=== PATIENT | female | born 1985 | race American Indian/Alaskan Native ===

== ENCOUNTER 2019-01-10 02:33 | Emergency (ER) | payer OTHER ==
[2019-01-10 06:02] VITALS: BP 134/80
[2019-01-10 07:18] LABS: Hematocrit 27.9 % (30.3-42.9); Hemoglobin 8.7 gm/dl (10.1-14.3)
[2019-01-10 07:19] LABS: Mean Corpuscular HGB Conc 31 % (30-34); Mean Corpuscular Volume 80 fl (79-97); Platelet Count 250 K/mm3 (140-440)
--- NOTE | 2019-01-10 07:22 | Emergency Department Report ---
ED General Adult HPI - General Chief complaint: Extremity Problem,Nontraumatic Stated complaint: SWOLLEN LEFT LEG Time Seen by Provider: 01/10/19 06:22 Source: patient Mode of arrival: Ambulatory Limitations: No Limitations - History of Present Illness Initial comments: Patient presents to the ED for left leg pain x 4 days. Patient denies injury to her leg. Patient is currently on OCP. Patient denies any chest pain, shortness breath, or headache. Patient also denies any recent travel. -: Sudden Location: lower extremity Radiation: non-radiation Severity scale (0 -10): 10 Quality: sharp Consistency: constant Improves with: none Worsens with: none Associated Symptoms: denies other symptoms Treatments Prior to Arrival: none - Related Data Previous Rx's Medication Instructions Recorded Last Taken Type Ibuprofen [Motrin] 800 mg PO Q8HR PRN #30 tablet 01/10/19 Unknown Rx predniSONE [Deltasone] 20 mg PO DAILY #15 tablet 01/10/19 Unknown Rx Allergies Allergy/AdvReac Type Severity Reaction Status Date / Time No Known Allergies Allergy Unverified 01/10/19 02:43 ED Review of Systems ROS: Stated complaint: SWOLLEN LEFT LEG Other details as noted in HPI Comment: All other systems reviewed and negative Constitutional: denies: chills, fever Eyes: denies: eye pain, eye discharge, vision change ENT: denies: ear pain, throat pain Respiratory: denies: cough, shortness of breath, wheezing Cardiovascular: denies: chest pain, palpitations Endocrine: no symptoms reported Gastrointestinal: denies: abdominal pain, nausea, diarrhea Genitourinary: denies: urgency, dysuria, discharge Musculoskeletal: other (leg pain). denies: back pain, joint swelling, arthralgia Skin: denies: rash, lesions Neurological: denies: headache, weakness, paresthesias Psychiatric: denies: anxiety, depression Hematological/Lymphatic: denies: easy bleeding, easy bruising ED Past Medical Hx - Past Medical History Previous Medical History?: Yes Additional medical history: anemia - Surgical History Past Surgical History?: Yes Additional Surgical History: x1 - Social History Smoking Status: Never Smoker Substance Use Type: Alcohol - Medications Home Medications: Home Medications Medication Instructions Recorded Confirmed Last Taken Type Ibuprofen [Motrin] 800 mg PO Q8HR PRN #30 tablet 01/10/19 Unknown Rx predniSONE [Deltasone] 20 mg PO DAILY #15 tablet 01/10/19 Unknown Rx ED Physical Exam - General Limitations: No Limitations General appearance: alert, in no apparent distress - Head Head exam: Present: atraumatic, normocephalic - Eye Eye exam: Present: normal appearance, PERRL, EOMI - ENT ENT exam: Present: mucous membranes moist - Neck Neck exam: Present: normal inspection - Respiratory Respiratory exam: Present: normal lung sounds bilaterally. Absent: respiratory distress, wheezes, rales - Cardiovascular Cardiovascular Exam: Present: regular rate, normal rhythm. Absent: systolic murmur, diastolic murmur, rubs, gallop - GI/Abdominal GI/Abdominal exam: Present: soft, normal bowel sounds. Absent: distended, tenderness - Extremities Exam Extremities exam: Present: calf tenderness - Back Exam Back exam: Present: normal inspection - Neurological Exam Neurological exam: Present: alert, oriented X3, CN II-XII intact. Absent: motor sensory deficit - Psychiatric Psychiatric exam: Present: normal affect, normal mood - Skin Skin exam: Present: warm, dry, intact, normal color. Absent: rash ED Course Vital Signs 01/10/19 01/10/19 05:59 07:51 Temperature 97.3 F L 98.5 F Pulse Rate 87 Respiratory 18 Rate Blood Pressure 134/80 Blood Pressure 134/80 [Left] O2 Sat by Pulse 98 Oximetry ED Medical Decision Making - Lab Data Result diagrams: 01/10/19 07:04 01/10/19 07:10 - Radiology Data Radiology results: report reviewed - Medical Decision Making Discussed findings with patient and the need to use a warm compress Critical care attestation.: If time is entered above; I have spent that time in minutes in the direct care of this critically ill patient, excluding procedure time. ED Disposition Clinical Impression: Phlebitis and thrombophlebitis Disposition: DC-01 TO HOME OR SELFCARE Is pt being admited?: No Does the pt Need Aspirin: No Condition: Stable Instructions: Superficial Thrombophlebitis (ED) Additional Instructions: return if worse Referrals: BOLIVAR CUELLAR MD [Primary Care Provider] - 3-5 Days [facility] [Provider Group] - 3-5 Days [facility] [Provider Group] - 3-5 Days LUIS EDUARDO MD [Staff Physician] - 3-5 Days Forms: Work/School Release Form(ED) Time of Disposition: 10:40
[2019-01-10 07:24] LABS: Red Cell Distribution Width 26.8 % (13.2-15.2)
[2019-01-10 07:28] LABS: INR 1.07 (0.87-1.13)
[2019-01-10 07:29] LABS: BUN/Creatinine Ratio 14; Blood Urea Nitrogen 7 mg/dL (7-17); Hemolysis Index 16; Partial Thromboplastin Time 21.4 Sec. (24.2-36.6)
[2019-01-10 08:30] LABS: Basophils % (Manual) 0 % (0.0-1.8); Monocytes % (Manual) 0 % (0.0-7.3); Total Cells Counted 100
[2019-01-10 08:32] LABS: Anisocytosis 1+; Macrocytosis Few; Ovalocytes 1+; Platelet Estimate Consistent w Auto; Poikilocytosis 2+; Tear Drop Cells Few
--- NOTE | 2019-01-10 10:34 | Vascular Lab Report ---
FINAL REPORT EXAM: VL VENOUS DUPLEX LE LT HISTORY: pain TECHNIQUE: Dudley scale, color and pulsed Doppler ultrasound with color flow and spectral analysis toby luation of the left lower extremity was performed to assess for deep vein thrombosis. PRIORS: None currently available. FINDINGS: Left Extremity: Noncompressibility in the superficial saphenous vein extending from a popliteal fossa to the ankle. Otherwise, there s normal grayscale appearance and compressibility. Normal phasic pulsed Doppler and normal color Doppler flow are visualized. The interrogated vessels s how normal augmentation. IMPRESSION: No evidence for DVT. Thrombus in the lower superficial fat facets vein. Mich level II reporting initiated.
== END 2019-01-10 11:07 | disposition home or self-care (01) ==
LOC: ED 02:33
DX: I80.9 Phlebitis and thrombophlebitis of unspecified site (principal)
CPT/HCPCS: 36415; 80048; 85007; 85025; 85610; 85730

== ENCOUNTER 2022-05-15 15:50 | Emergency (ER) | payer OTHER ==
[2022-05-15 17:25] LABS: BUN/Creatinine Ratio 5; Blood Urea Nitrogen 4 mg/dL (7-17); Calcium 9.2 mg/dL (8.4-10.2); Hemolysis Index 5
[2022-05-15 17:27] LABS: Basophils % (Auto) 0.2 % (0.0-1.8); Eosinophils % (Auto) 0.1 % (0.0-4.3); Hematocrit 39.8 % (30.3-42.9); Lymphocytes # (Auto) 1.6 K/mm3 (1.2-5.4); Lymphocytes % (Auto) 9.9 % (13.4-35.0); Mean Corpuscular HGB Conc 33 % (30-34); Mean Corpuscular Volume 95 fl (79-97); Monocytes # (Auto) 0.6 K/mm3 (0.0-0.8); Monocytes % (Auto) 3.7 % (0.0-7.3); Platelet Count 251 K/mm3 (140-440); Red Blood Count 4.18 M/mm3 (3.65-5.03)
[2022-05-15 17:34] LABS: Red Cell Distribution Width 21.2 % (13.2-15.2)
[2022-05-16 01:03] LABS: Bilirubin,Urine NEG (Negative); Blood,Urine LG (Negative); Color,Urine Amber (Yellow)
[2022-05-16 01:25] LABS: Mucus,Urine 3+ /HPF
[2022-05-16] MEDS ORDERED: SODIUM CHLORIDE 0.9% 1000 ML 1,000 ML IV ONE (01:43)
[2022-05-16] MEDS ORDERED: MORPHINE 4 MG/1 ML INJ IV STA (01:43)
--- NOTE | 2022-05-16 02:40 | Cat Scan Report ---
. CT ABDOMEN AND PELVIS WITH CONTRAST INDICATION / CLINICAL INFORMATION: Lower ABD Pain. TECHNIQUE: Axial CT images were obtained through the abdomen and pelvis after 100 cc of Omnipaque [address] scans at this location are performed using CT dose reduction for ALARA by means of automated exposure control. COMPARISON: None available. FINDINGS: LOWER CHEST: No significant abnormality. AORTA / ARTERIES: No significant abnormality. IVC / VEINS: No significant abnormality. LYMPH NODES: No significant adenopathy. COLON: Fluid-filled loops of large bowel. APPENDIX: No significant abnormality. STOMACH / SMALL BOWEL: Fluid-filled loops of small bowel. PERITONEUM: No free fluid. No free air. No fluid collection. LIVER: No significant abnormality. GALLBLADDER: No significant abnormality. BILE DUCTS: No significant abnormality. PANCREAS: No significant abnormality. SPLEEN: No significant abnormality. ADRENALS: No significant abnormality. RIGHT KIDNEY / URETER: Right renal cyst. No acute findings. LEFT KIDNEY / URETER: No significant abnormality. URINARY BLADDER: Fibroid uterus. REPRODUCTIVE ORGANS: No significant abnormality. SKELETAL SYSTEM: No significant abnormality. ADDITIONAL FINDINGS: None. IMPRESSION: 1. Fluid-filled loops of large and small bowel which can be seen with enteritis/colitis. Signer Name: Rajat Warner DO Signed: 05/16/2022 2:36 AM Workstation Name: [id number]
[2022-05-16] MEDS ORDERED: HYOSCYAMINE SUBL 0.125 MG TAB SL ONE (03:12)
[2022-05-16] MEDS ORDERED: levoFLOXacin 750 MG TAB PO STA (03:13)
[2022-05-16] MEDS ORDERED: KETOROLAC 30 MG/1 ML INJ IV STA (05:33)
[2022-05-16 05:53] VITALS: BP 137/71
--- NOTE | 2022-05-16 05:58 | Emergency Department Report ---
ED Abdominal Pain HPI - General Chief Complaint: Abdominal Pain Stated Complaint: ABD PAIN Time Seen by Provider: 05/16/22 01:34 Source: patient Mode of arrival: Ambulatory Limitations: No Limitations - History of Present Illness MD Complaint: abdominal pain -: Gradual, days(s) (3) Location: diffuse Radiation: none Severity: moderate Severity scale (0 -10): 8 Quality: cramping, aching Consistency: constant Improves With: nothing Worsens With: vomiting Associated Symptoms: nausea, vomiting. denies: diarrhea, dysuria, hematemesis, hematuria, anorexia - Related Data Previous Rx's Medication Instructions Recorded Last Taken Type Ibuprofen [Motrin] 800 mg PO Q8HR PRN #30 tablet 01/10/19 Unknown Rx predniSONE [Deltasone] 20 mg PO DAILY #15 tablet 01/10/19 Unknown Rx Ciprofloxacin HCl 500 mg PO BID #28 05/16/22 Unknown Rx Hyoscyamine Subl [Levsin Sl 0.125 0.125 mg SL Q6HR PRN #20 tab 05/16/22 Unknown Rx TAB] Phenazopyridine [Pyridium] 200 mg PO BID PRN #10 tab 05/16/22 Unknown Rx metroNIDAZOLE [Flagyl] 500 mg PO Q12HR #28 tab 05/16/22 Unknown Rx Allergies Allergy/AdvReac Type Severity Reaction Status Date / Time No Known Allergies Allergy Verified 05/15/22 15:55 ED Review of Systems ROS: Stated complaint: ABD PAIN Other details as noted in HPI Comment: All other systems reviewed and negative ED Past Medical Hx - Past Medical History Additional medical history: anemia - Surgical History Additional Surgical History: x1 - Social History Smoking Status: Never Smoker Substance Use Type: Alcohol - Medications Home Medications: Home Medications Medication Instructions Recorded Confirmed Last Taken Type Ibuprofen [Motrin] 800 mg PO Q8HR PRN #30 tablet 01/10/19 Unknown Rx predniSONE [Deltasone] 20 mg PO DAILY #15 tablet 01/10/19 Unknown Rx Ciprofloxacin HCl 500 mg PO BID #28 05/16/22 Unknown Rx Hyoscyamine Subl [Levsin Sl 0.125 0.125 mg SL Q6HR PRN #20 tab 05/16/22 Unknown Rx TAB] Phenazopyridine [Pyridium] 200 mg PO BID PRN #10 tab 05/16/22 Unknown Rx metroNIDAZOLE [Flagyl] 500 mg PO Q12HR #28 tab 05/16/22 Unknown Rx ED Physical Exam - General Limitations: No Limitations General appearance: alert, in no apparent distress - Head Head exam: Present: atraumatic, normocephalic - Eye Eye exam: Present: normal appearance - ENT ENT exam: Present: mucous membranes moist - Neck Neck exam: Present: normal inspection - Respiratory Respiratory exam: Present: normal lung sounds bilaterally. Absent: respiratory distress - Cardiovascular Cardiovascular Exam: Present: regular rate, normal rhythm. Absent: systolic murmur, diastolic murmur, rubs, gallop - GI/Abdominal GI/Abdominal exam: Present: soft, tenderness (To the mid gastric in the epigastric region.), normal bowel sounds, other (No Rovsing, no Lorenzo Cueva, no [place]). Absent: guarding, rebound - Extremities Exam Extremities exam: Present: normal inspection - Back Exam Back exam: Present: normal inspection - Neurological Exam Neurological exam: Present: alert, oriented X3, CN II-XII intact, normal gait - Psychiatric Psychiatric exam: Present: normal affect, normal mood - Skin Skin exam: Present: warm, dry, intact, normal color. Absent: rash ED Course Vital Signs 05/15/22 05/16/22 15:54 05:52 Temperature 99 F Pulse Rate 115 H 102 H Respiratory 22 12 Rate Blood Pressure 141/72 137/71 [Right] O2 Sat by Pulse 100 100 Oximetry ED Medical Decision Making - Lab Data Result diagrams: 05/15/22 16:04 05/15/22 16:04 Lab Results 05/15/22 05/15/22 05/15/22 Range/Units 16:04 16:04 16:04 WBC 16.0 H (4.5-11.0) K/mm3 RBC 4.18 (3.65-5.03) M/mm3 Hgb 13.0 (10.1-14.3) gm/dl Hct 39.8 (30.3-42.9) % MCV 95 (79-97) fl MCH 31 (28-32) pg MCHC 33 (30-34) % RDW 21.2 H (13.2-15.2) % Plt Count 251 (140-440) K/mm3 Lymph % (Auto) 9.9 L (13.4-35.0) % [place] % (Auto) 3.7 (0.0-7.3) % Eos % (Auto) 0.1 (0.0-4.3) % Baso % (Auto) 0.2 (0.0-1.8) % Lymph # (Auto) 1.6 (1.2-5.4) K/mm3 [place] # (Auto) 0.6 (0.0-0.8) K/mm3 Eos # (Auto) 0.0 (0.0-0.4) K/mm3 Baso # (Auto) 0.0 (0.0-0.1) K/mm3 Seg Neutrophils % 86.1 H (40.0-70.0) % Seg Neutrophils # 13.8 H (1.8-7.7) K/mm3 Sodium 137 (137-145) mmol/L Potassium 3.2 L (3.6-5.0) mmol/L Chloride 101.4 (98-107) mmol/L Carbon Dioxide 19 L (22-30) mmol/L Anion Gap 20 mmol/L BUN 4 L (7-17) mg/dL Creatinine 0.8 (0.6-1.2) mg/dL Estimated GFR > 60 ml/min BUN/Creatinine Ratio 5 % Glucose 145 H (65-100) mg/dL Calcium 9.2 (8.4-10.2) mg/dL Lipase 15 (13-60) units/L HCG, Qual Negative (Negative) Urine Color (Yellow) Urine Turbidity (Clear) Urine pH (5.0-7.0) Ur Specific [place] (1.003-1.030) Urine Protein (Negative) mg/dL Urine Glucose (UA) (Negative) mg/dL Urine Ketones (Negative) mg/dL Urine Blood (Negative) Urine Nitrite (Negative) Urine Bilirubin (Negative) Urine Urobilinogen (<2.0) mg/dL Ur Leukocyte Esterase (Negative) Urine WBC (Auto) (0.0-6.0) /HPF Urine RBC (Auto) (0.0-6.0) /HPF U Epithel Cells (Auto) (0-13.0) /HPF Urine Mucus /HPF 05/16/22 Range/Units Unknown WBC (4.5-11.0) K/mm3 RBC (3.65-5.03) M/mm3 Hgb (10.1-14.3) gm/dl Hct (30.3-42.9) % MCV (79-97) fl MCH (28-32) pg MCHC (30-34) % RDW (13.2-15.2) % Plt Count (140-440) K/mm3 Lymph % (Auto) (13.4-35.0) % [place] % (Auto) (0.0-7.3) % Eos % (Auto) (0.0-4.3) % Baso % (Auto) (0.0-1.8) % Lymph # (Auto) (1.2-5.4) K/mm3 [place] # (Auto) (0.0-0.8) K/mm3 Eos # (Auto) (0.0-0.4) K/mm3 Baso # (Auto) (0.0-0.1) K/mm3 Seg Neutrophils % (40.0-70.0) % Seg Neutrophils # (1.8-7.7) K/mm3 Sodium (137-145) mmol/L Potassium (3.6-5.0) mmol/L Chloride (98-107) mmol/L Carbon Dioxide (22-30) mmol/L Anion Gap mmol/L BUN (7-17) mg/dL Creatinine (0.6-1.2) mg/dL Estimated GFR ml/min BUN/Creatinine Ratio % Glucose (65-100) mg/dL Calcium (8.4-10.2) mg/dL Lipase (13-60) units/L HCG, Qual (Negative) Urine Color So (Yellow) Urine Turbidity Slightly-cloudy (Clear) Urine pH 5.0 (5.0-7.0) Ur Specific [place] 1.027 (1.003-1.030) Urine Protein 100 mg/dl (Negative) mg/dL Urine Glucose (UA) Neg (Negative) mg/dL Urine Ketones Tr (Negative) mg/dL Urine Blood Lg (Negative) Urine Nitrite Neg (Negative) Urine Bilirubin Neg (Negative) Urine Urobilinogen 4.0 (<2.0) mg/dL Ur Leukocyte Esterase Sm (Negative) Urine WBC (Auto) 99.0 H (0.0-6.0) /HPF Urine RBC (Auto) 59.0 (0.0-6.0) /HPF U Epithel Cells (Auto) 7.0 (0-13.0) /HPF Urine Mucus 3+ /HPF - Medical Decision Making This patient presents with abdominal pain with history secondary to a urinary tract infection and a enterocolitis. Their evaluation has not identified a emergent etiology for the abdominal pain. Specifically, given the very benign exam, normal laboratory studies, and lack of significant risk factors, I have a very low suspicion for appendicitis, ischemic bowel, bowel perforation, or any other life threatening disease. I have discussed with the patient the level of uncertainty with undifferentiated abdominal pain and clearly explained the need to follow-up as noted on the discharge instructions, or return to the Emergency Department immediately if the pain worsens, develops fever, persistent and u ncontrollable vomiting, or for any new symptoms or concerns. I discussed with the patient that this presentation today for abdominal pain could represent a significant risk for an acute abdominal process. Although the tests in the ED were essentially normal, there is still a possibility of a process such as appendicitis, diverticulitis, cholecystitis, ulcer, early bowel obstruction, mesenteric ischemia, kidney stone, or even kidney infection which could subsequently cause disability or . The patient understands that they must return within 24 hours for a recheck or see their physician within 24 hours for re-exam due to the possibility of significant surgical or medical process. Critical care attestation.: If time is entered above; I have spent that time in minutes in the direct care of this critically ill patient, excluding procedure time. ED Disposition Clinical Impression: UTI (urinary tract infection), Colitis Disposition: 01 HOME / SELF CARE / HOMELESS Is pt being admited?: No Does the pt Need Aspirin: No Condition: Stable Instructions: Urinary Tract Infection, Adult, Colitis, Abdominal Pain (ED) Prescriptions: Ciprofloxacin HCl 500 mg PO BID #28 metroNIDAZOLE [Flagyl] 500 mg PO Q12HR #28 tab Hyoscyamine Subl [Levsin Sl 0.125 TAB] 0.125 mg SL Q6HR PRN #20 tab PRN Reason: abdominal cramps and spasms Phenazopyridine [Pyridium] 200 mg PO BID PRN #10 tab PRN Reason: dysuria Referrals: [facility] [Provider Group] - 3-5 Days
== END 2022-05-16 05:53 | disposition home or self-care (01) ==
LOC: ED 15:50
DX: K52.9 Noninfective gastroenteritis and colitis, unspecified (principal); N39.0 Urinary tract infection, site not specified; Z79.899 Other long term (current) drug therapy
CPT/HCPCS: 36415; 74177; 80048; 81001; 83690; 84703; 85025; 87086; 96361; 96374; 96375; 99284; J1885; J2270; J7030; Q9967